=== PATIENT | male | born 1970 | race Caucasian/White ===

== ENCOUNTER 2019-12-02 07:00 | Day surgery (SDC) | payer OTHER ==
[2019-12-01 12:31] LABS: BASOPHILS # (AUTO) 0.1 X10'3 (0-0.2); BASOPHILS % (AUTO) 0.9 % (0-1); EOSINOPHILS # (AUTO) 0.2 X10'3 (0-0.9); EOSINOPHILS % (AUTO) 2.3 % (0-6); HEMATOCRIT 45.2 % (42.0-52.0); HEMOGLOBIN 14.9 g/dl (14.0-17.9); LYMPHOCYTES # (AUTO) 3.1 X10'3 (1.1-4.8); LYMPHOCYTES % (AUTO) 34.6 % (21-51); MEAN CORPUSCULAR HEMOGLOBIN 28.8 PG (27.0-31.0); MEAN CORPUSCULAR HGB CONC 33.1 g/dL (33.0-36.5); MEAN CORPUSCULAR VOLUME 87.1 FL (78-98); MEAN PLATELET VOLUME 8.1 FL (7.4-10.4); MONOCYTES # (AUTO) 0.7 X10'3 (0-0.9); MONOCYTES % (AUTO) 7.7 % (2-12); NEUTROPHILS # (AUTO) 4.9 X10'3 (1.8-7.7); NEUTROPHILS % (AUTO) 54.5 % (42-75); PLATELET COUNT 337 X10'3 (140-440); RED BLOOD COUNT 5.18 X10'6 (4.70-6.10); RED CELL DISTRIBUTION WIDTH 13.9 % (11.5-14.5)
[2019-12-01 12:34] LABS: ALBUMIN 3.8 G/DL (3.4-5.0); ANION GAP 9 (8-16); BLOOD UREA NITROGEN 24 MG/DL (7-18); CALCIUM 9.2 MG/DL (8.5-10.1); CHLORIDE 106 MMOL/L (99-107); CREATININE 0.96 MG/DL (0.60-1.10); GLUCOSE 115 MG/DL (70-104); SODIUM 137 MMOL/L (135-145); TOTAL CARBON DIOXIDE 22.2 MMOL/L (24-32); eGFR 83 ML/MIN
[2019-12-01 12:35] LABS: POTASSIUM 4.8 MMOL/L (3.5-5.1)
[2019-12-02] VITALS (11 sets, daily range): BP systolic 104–133; BP diastolic 68–84
[~2019-12-02] VITALS: Ht 188 cm; Wt 116.9 kg
[~2019-12-02 07:00] MED LIST: CHOL200035 PO; FENO135C3 PO; GLUC750T8 PO; LORA-641 PO; MONT10TA21 PO; MULT-964 PO; NEBI2.5T3 PO; OMEP-84 PO
[2019-12-02] MEDS ORDERED: amiodarone 150mg/dext, iso-os 100 ML IV ONE (07:20)
[2019-12-02] MEDS ORDERED: normal saline 1000ml 1,000 ML IV SCH (07:20)
[2019-12-02] MEDS ORDERED: atropine 0.1mg/ml 10ml syringe IV ONE (07:20)
[2019-12-02] MEDS ORDERED: LORazepam 0.5 MG tablet PO ONE (07:20)
[2019-12-02] MEDS ORDERED: ASPI-842 PO (07:20)
[2019-12-02] MEDS ORDERED: fentaNYL/PF 50MCG/1 ML 2ML syringe IV ONE (07:20)
[2019-12-02] MEDS ORDERED: MIDAZolam 1mg/ml 10ml vial IV ONE (07:20)
[2019-12-02] MEDS ORDERED: diphenhydrAMINE 25mg capsule PO ONE (07:20)
[2019-12-02] MEDS ORDERED: DILT240C94 PO (07:27)
[2019-12-02] MEDS ORDERED: OMEG1CAP13 PO (07:27)
[2019-12-02] MEDS ORDERED: DULO20CA50 PO (07:27)
[2019-12-02] MEDS ORDERED: MAGN420T (07:27)
[2019-12-02] MEDS ORDERED: DIGO125T97 PO (07:27)
[2019-12-02] MEDS ORDERED: CYCL-1 PO (07:30)
[2019-12-02] MEDS ORDERED: APIX5TAB3 PO (07:30)
[2019-12-02] MEDS ORDERED: PANT40TA4 PO (07:34)
[2019-12-02] MEDS ORDERED: FURO20TA4 PO (07:34)
[2019-12-02] MEDS ORDERED: FLEC100T PO (07:34)
[2019-12-02] MEDS ORDERED: AMIT-1 PO (07:34)
== END 2019-12-02 10:45 | disposition home or self-care (01) ==
LOC: SSTAY O 07:00
PROVIDERS: ATTEND Internal Medicine Cardiovascular Disease
DX: I48.19 Other persistent atrial fibrillation (principal); I25.10 Atherosclerotic heart disease of native coronary artery without angina pectoris; E78.5 Hyperlipidemia, unspecified; I34.9 Nonrheumatic mitral valve disorder, unspecified; G47.33 Obstructive sleep apnea (adult) (pediatric); G40.909 Epilepsy, unspecified, not intractable, without status epilepticus; E66.9 Obesity, unspecified; Z68.41 Body mass index [BMI] 40.0-44.9, adult; Z79.899 Other long term (current) drug therapy; Z79.82 Long term (current) use of aspirin; Z98.890 Other specified postprocedural states; Z88.5 Allergy status to narcotic agent; Z88.8 Allergy status to other drugs, medicaments and biological substances; Z82.49 Family history of ischemic heart disease and other diseases of the circulatory system; Z83.3 Family history of diabetes mellitus; Z83.6 Family history of other diseases of the respiratory system
CPT/HCPCS: 36415; 80048; 85025; 85610; 92960; 93005; 94760; J2250; J3010; J7030; Q0163